=== PATIENT | male | born 1980 | race Caucasian/White ===

== ENCOUNTER 2019-08-29 12:25 | Emergency (ER) | payer MEDICAID ==
[~2019-08-29] VITALS: Ht 175.3 cm; Wt 93.9 kg
[2019-08-29 12:34] VITALS: Ht 175.3 cm; Wt 93.9 kg
[2019-08-29 13:10] LABS: BASOPHIL % 0.4 % (0-2); PLATELET COUNT 229 x10^3mcL (130-400); RED CELL DISTRIBUTION WIDTH 13.4 % (11.5-14.5)
[2019-08-29 13:15] LABS: CARBON DIOXIDE 28.6 mmol/L (21-32); CHLORIDE SERUM 102 mmol/L (98-107); GFR1 > 60 mL/min; GLUCOSE SERUM 87 mg/dL (74-106); POTASSIUM SERUM 3.9 mmol/L (3.5-5.1); SODIUM SERUM 140 mmol/L (136-145)
[2019-08-29 13:24] LABS: ALBUMIN 4.4 g/dL (3.4-5.0); ALKALINE PHOSPHATASE 139 U/L (46-116); ALT/SGPT 38 U/L (16-63); AST/SGOT 21 U/L (15-37); BILIRUBIN TOTAL 0.3 mg/dL (0.20-1.00); TOTAL PROTEIN, SERUM 8.6 g/dL (6.4-8.2)
[2019-08-29 14:08] VITALS: BP 111/68
== END 2019-08-29 14:08 | disposition home or self-care (01) ==
LOC: ED 12:25
PROVIDERS: Emergency Medicine
DX: R07.89 Other chest pain (principal); R20.2 Paresthesia of skin; R06.02 Shortness of breath
CPT/HCPCS: J1885